=== PATIENT | female | born 1955 | race Caucasian/White ===

== ENCOUNTER 2019-12-27 09:46 | Outpatient (CLI) | payer OTHER ==
--- NOTE | 2019-12-27 12:48 | MMO ---
Bilateral MAMMO Bilat Screen [facility]. CLINICAL HISTORY: Patient is 64 years old and is seen for screening. The patient has the following family history of breast cancer: sister, malignant (generic) and mother, malignant (generic). The patient has no personal history of cancer. VIEWS: The views performed were: bilateral craniocaudal with tomosynthesis and bilateral mediolateral oblique with tomosynthesis. FILMS COMPARED: The present examination has been compared to prior imaging studies performed at [facility] on 03/07/2009, 09/28/2013, 08/01/2015 and 10/08/2016. This study has been interpreted with the assistance of computer-aided detection. MAMMOGRAM FINDINGS: There are scattered fibroglandular densities. There are vascular calcifications seen in both breasts. There are no suspicious masses, suspicious calcifications, or new areas of architectural distortion. IMPRESSION: A ROUTINE FOLLOW-UP MAMMOGRAM IN 1 YEAR IS RECOMMENDED. THE RESULTS OF THIS EXAM WERE SENT TO THE PATIENT. ACR BI-RADS Category 2 - Benign finding MAMMOGRAPHY NOTE: 1. A negative mammogram report should not delay a biopsy if a dominant of clinically suspicious mass is present. 2. Approximately 10% to 15% of breast cancers are not detected by mammography. 3. Adenosis and dense breasts may obscure an underlying neoplasm. Reported by: JE MICHAEL MD Electonically Signed: [id number]
== END 2019-12-27 09:47 | disposition home or self-care (01) ==
LOC: BICMAMMO 09:46
PROVIDERS: ATTEND Family Medicine
DX: Z12.31 Encounter for screening mammogram for malignant neoplasm of breast (principal); Z80.3 Family history of malignant neoplasm of breast
CPT/HCPCS: 77063; 77067

== ENCOUNTER 2020-01-17 02:44 | Emergency (ER) | payer OTHER ==
[2020-01-17] MEDS ORDERED: Ketorolac Tromethamine 60 MG/2 ML VIAL ONE (03:47)
--- NOTE | 2020-01-17 07:02 | RAD ---
RIGHT HAND 3 VIEWS: Date: 01/17/2020 INDICATION: Right hand swelling. COMPARISON: None. 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 Boris ne mineralization appears within normal limits. No acute fracture or subluxation is evident. No radio paque foreign body is noted. IMPRESSION: No acute osseous abnormality. POS: BH
--- NOTE | 2020-01-17 07:04 | ULT ---
PRELIMINARY REPORT/[facility]/EMERGENCY AFTER HOURS PROCEDURE: EXAM: US Duplex right Upper Extremity Veins. CLINICAL HISTORY: RUE pain/edema x 1 day TECHNIQUE: Real-time ultrasound scan of the veins of the right upper extremity with color Doppler flow, spectral waveform analysis and compression. COMPARISON: None provided. FINDINGS: VEINS: The right internal jugular, subclavian, axillary, cephalic, basilic, and brachial veins are ec holucent, compressible, and demonstrate normal color Doppler flow. SOFT TISSUES: No acute finding. IMPRESSION: No deep venous thrombosis in the right upper extremity. ELECTRONICALLY SIGNED BY: Chet Wolff M.D. Jan 17, 2020 4:48:28 AM [employer] This report is intended for review by the ordering physician only, in accordance of law. If you recei ve this report in error, please call [facility] at [phone]. FINAL REPORT EMERGENCY AFTER HOURS VENOUS DOPPLER RIGHT UPPER EXTREMITY: I agree with the preliminary report provided by [facility]. No evidence of venous thrombosis within the right upper extremity. POS:
== END 2020-01-17 05:48 | disposition home or self-care (01) ==
LOC: ERS 02:44
DX: M79.89 Other specified soft tissue disorders (principal)
CPT/HCPCS: 96372; J1885

== ENCOUNTER 2020-12-20 09:04 | Outpatient (CLI) | payer MEDICARE ==
--- NOTE | 2020-12-20 14:23 | MRI ---
MRI OF THE LUMBAR SPINE WITHOUT CONTRAST: 12/20/20 INDICATIONS: 65-year-old female with radiculopathy and low back pain. COMPARISON: Prior MR of the lumbar spine without contrast dated 11/19/16 from [facility]. FINDINGS: The grade I anterolisthesis is stable at L5-S1. Conus is seen to terminate at L1. The visualized retr operitoneum and periventricular soft tissues reveal no acute abnormality. At L5-S1, there is advanced facet joint degenerative change, grade I anterolisthesis and a broad base d pseudobulge with loss of disc space height inducing mild bilateral neural foraminal narrowing, whic h is stable to the prior exam. At L4-5, there is a broad based bulge with facet hypertrophy inducing mild bilateral neural foraminal narrowing which is stable to the prior exam. At L3-4, there is a broad based bulge with mild facet joint degenerative change without appreciable c entral canal or neural foraminal narrowing which is stable to the prior exam. At L2-3, there is a broad based disc bulge with facet hypertrophy with no appreciable central or neur al foraminal narrowing. This appears relatively stable to the prior exam. At L1-2, there is no appreciable central canal or neural foraminal narrowing. At T12-L1, there is no appreciable central canal or neural foraminal narrowing. IMPRESSION: Stable mild spondylosis of the lumbar spine, most severe at L5-S1 where there is grade I anterolisthe sis with mild bilateral neural foraminal narrowing. POS: OFF
--- NOTE | 2020-12-20 15:07 | MRI ---
MRI OF RIGHT SHOULDER PERFORMED WITHOUT CONTRAST ENHANCEMENT: 12/20/20 HISTORY: Right shoulder pain. Painful shoulder with decreased range of motion. There is some mild arthrosis of the AC joint. There is moderately severe tendinopathy changes of the supraspinatus tendon. Interstitial changes pro bably represent some minimal interstitial tearing but overall the tendon does appear intact. The infr aspinatus is intact. There is some tendinopathy changes of the superior fibers of the subscapularis t endon. The biceps tendon is slightly subluxed in position. This would suggest there may be a partial undersurface tear. It does appear to pass into the bicipital groove in the more inferior aspect of th e bicipital groove. The posterior superior labrum is mildly truncated. There is some undersurface sig nal change of the superior labrum which would suggest there is some undersurface degenerative fraying . The inferior glenohumeral ligamentous and labral complex is intact. The supra and infraspinatus muscles show no atrophy. There is some very mild atrophy of the superior fibers of the subscapularis tendon. IMPRESSION: 1. Moderately severe tendinopathy changes of the supraspinatus tendon. 2. Slightly subluxed position of the biceps tendon. This would indicate there is probably a part ial undersurface tear of the superior fibers of the subscapularis tendon. There is some mild degenera tion of the superior labrum posterior to the biceps anchor. POS: AMIRA
== END 2020-12-20 09:05 | disposition home or self-care (01) ==
LOC: BICMRI 09:04
PROVIDERS: ATTEND Family Medicine
DX: M12.819 Other specific arthropathies, not elsewhere classified, unspecified shoulder (principal); M47.26 Other spondylosis with radiculopathy, lumbar region; M51.16 Intervertebral disc disorders with radiculopathy, lumbar region; M43.16 Spondylolisthesis, lumbar region; M75.81 Other shoulder lesions, right shoulder; M67.813 Other specified disorders of tendon, right shoulder
CPT/HCPCS: 72148

== ENCOUNTER 2021-01-22 08:19 | Outpatient (CLI) | payer MEDICARE | END 2021-01-22 08:20 | disposition home or self-care (01) | LOC: BICRAD 08:19 | PROVIDERS: ATTEND Anesthesiology Pain Medicine | DX: M43.16 Spondylolisthesis, lumbar region (principal); M43.17 Spondylolisthesis, lumbosacral region; M47.816 Spondylosis without myelopathy or radiculopathy, lumbar region | CPT/HCPCS: 72110 ==

== ENCOUNTER 2021-10-28 08:52 | Outpatient (CLI) | payer MEDICARE | END 2021-10-28 08:53 | disposition home or self-care (01) | LOC: BICMRI 08:52 | PROVIDERS: ATTEND Orthopaedic Surgery | DX: M23.306 Other meniscus derangements, unspecified meniscus, right knee (principal); S83.241A Other tear of medial meniscus, current injury, right knee, initial encounter; M71.21 Synovial cyst of popliteal space [Baker], right knee; M25.461 Effusion, right knee ==

== ENCOUNTER 2022-01-06 10:34 | Outpatient (CLI) | payer MEDICARE | END 2022-01-06 10:35 | disposition home or self-care (01) | LOC: BICMAMMO 10:34 | PROVIDERS: ATTEND Family Medicine | DX: Z12.31 Encounter for screening mammogram for malignant neoplasm of breast (principal); Z80.3 Family history of malignant neoplasm of breast | CPT/HCPCS: 77063; 77067 ==